=== PATIENT | male | born 1990 | race African-American/Black ===

== ENCOUNTER 2021-09-20 09:18 | Emergency (ER) | payer BC ==
[2021-09-20 09:35] VITALS: BP 133/72; PULSE 83; TEMP 98.5; BMI 21.2
== END 2021-09-20 10:46 | disposition home or self-care (01) ==
LOC: FER 09:18
DX: S96.911A Strain of unspecified muscle and tendon at ankle and foot level, right foot, initial encounter (principal); W20.8XXA Other cause of strike by thrown, projected or falling object, initial encounter
CPT/HCPCS: 73630-TC-RT-FY; 99283-25

== ENCOUNTER 2022-12-26 11:59 | Emergency (ER) | payer OTHER, BC ==
[2022-12-26 12:05] VITALS: BP 152/101; PULSE 90; RESP 18; BMI 20.4
[2022-12-26] MEDS ORDERED: IBUPROFEN 400 MG TABLET (FP) PO ONE ×2 (12:33→12:54)
[2022-12-26] MEDS ORDERED: ACETAMINOPHEN 500 MG TABLET (FP) PO ONE (12:33)
[2022-12-26] MEDS ORDERED: LIDOCAINE 5% TOPICAL PATCH TP ONE (12:33)
[2022-12-26] MEDS ORDERED: DIPHTH,PERTUSS(ACELL),TET 0.5 ML DISP.SYRIN IM ONE ×2 (12:36→12:55)
[2022-12-26] MEDS ORDERED: ACETAMINOPHEN 325 MG TABLET (FP) ONE (12:55)
[2022-12-26] MEDS ORDERED: LIDOCAINE 5% TOPICAL PATCH ONE (12:55)
[2022-12-26] MEDS ORDERED: LIDOCAINE PATCH REMOVAL MC ONE (22:00)
== END 2022-12-26 14:13 | disposition home or self-care (01) ==
LOC: JER 11:59
PROC: 3E0234Z Introduction of Serum, Toxoid and Vaccine into Muscle, Percutaneous Approach (ICD-10-PCS; principal; 2022-12-26)
DX: S80.211A Abrasion, right knee, initial encounter (principal); S80.212A Abrasion, left knee, initial encounter; V03.10XA Pedestrian on foot injured in collision with car, pick-up truck or van in traffic accident, initial encounter
CPT/HCPCS: 72131-TC; 73562-TC-LT-FY; 73590-TC-LT-FY; 90715; 99284-25